=== PATIENT | male | born 1965 | race Caucasian/White ===

== ENCOUNTER 2017-08-09 17:10 | Emergency (ER) | payer SELFPAY ==
[2017-08-09 17:21] VITALS: BMI 24.1
[2017-08-09] MEDS ORDERED: ASPIRIN 81 MG CHEWABLE TABLETS PO ONE (17:51)
--- NOTE | 2017-08-09 17:56 | PDOC ---
Attending Attestation - Resident Resident Name: Celso Toussaint - HPI HPI: 08/09/17 20:11 Pt presents to the ED complaining of L sided arm tightness that then progressed to R sided arm numbness and now has resolved. Patient was recently discontinued on his antihypertensive meds. Denies chest pain or shortness of breath. Denies focal neurologic complaints. - Physicial Exam PE: 08/09/17 20:16 Agree with resident exam. Patient is in no acute distress. Lungs are clear. CV: regular rate and rhythm. Neurologically intact. - Medical Decision Making 08/09/17 20:18 Pt presents to the ED complaining of transient arm numbness that spontaneously resolved. Denies other complaints. Hypertensive on arrival to the ED. Will check labs and cardiac enzymes, treat with norvasc, likely discharge home if negative.
[2017-08-09] MEDS ORDERED: amLODIPine BESYLATE 10 MG TABLET (FP) PO ONE (18:01)
[2017-08-09] MEDS ORDERED: amLODIPine BESYLATE 5 MG TABLET (FP) ONE (18:05)
[2017-08-09] MEDS ORDERED: ASPIRIN 81 MG CHEWABLE TABLETS ONE (18:05)
[2017-08-09 18:18] LABS: BASO % 0.3 % (0-2.0); EOS % 0.8 % (0-4.5); HEMATOCRIT 47.1 % (35.4-49); HEMOGLOBIN 16.3 GM/dL (11.7-16.9); LYMPH % 12.9 % (8-40); MCH 29.2 pg (25.7-33.7); MCHC 34.5 g/dl (32.0-35.9); MEAN CELL VOLUME 84.7 fl (80-96); MEAN PLT VOLUME 8.8 fl (7.5-11.1); MONO % 5.9 % (3.8-10.2); NEUT % 80.1 % (42.8-82.8); PLATELET COUNT 174 K/MM3 (134-434); RBC 5.56 M/mm3 (4.00-5.60); RDW 13.3 % (11.9-15.9); WHITE BLOOD COUNT 8.2 K/mm3 (4.0-10.0)
--- NOTE | 2017-08-09 18:24 | PDOC ---
History of Present Illness - General Chief Complaint: CVA/TIA Stated Complaint: NUMBNESS TO RT FACE, TIGHTNESS ON ARMS Time Seen by Provider: 08/09/17 17:39 History Source: Patient Exam Limitations: No Limitations - History of Present Illness Initial Comments: 08/09/17 18:08 The patient is a 52M with a PMH of HTN and HLD who presents to the ER with L arm tightness. The patient states that he felt tightness in his L arm which has since resolved. He also states that he now has R arm tightness and a headache. He describes the headache as superior frontal, pressure, intermittent and does not radiate. He states he has never had a headache like this before but cannot differentiate how this is different. He denies any numbness, tingling, or weakness, CP, SOB, fever, chills, nausea, vomiting. Past History - Past Medical History Allergies/Adverse Reactions: Allergies Allergy/AdvReac Type Severity Reaction Status Date / Time No Known Allergies Allergy Verified 08/09/17 17:22 Home Medications: Ambulatory Orders Aspirin [Aspirin EC] 81 mg PO DAILY 08/09/17 Atorvastatin Ca [Lipitor] 20 mg PO HS 08/09/17 Lisinopril [Prinivil] 10 mg PO DAILY 08/09/17 COPD: No HTN: Yes Hypercholesterolemia: Yes - Suicide/Smoking/Psychosocial Hx Smoking History: Never smoked Information on smoking cessation initiated: No Hx Alcohol Use: No Drug/Substance Use Hx: No Substance Use Type: None Review of Systems - Review of Systems Able to Perform ROS?: Yes Comments:: 08/09/17 18:28 GENERAL/CONSTITUTIONAL: No fever or chills. No weakness. HEAD, EYES, EARS, NOSE AND THROAT: No change in vision. No ear pain or discharge. No sore throat. CARDIOVASCULAR: No chest pain, palpitations, or lightheadedness. RESPIRATORY: No cough, wheezing, shortness of breath, or hemoptysis. GASTROINTESTINAL: No nausea, vomiting, diarrhea, constipation, or abdominal pain. GENITOURINARY: No dysuria, frequency, hematuria, or change in urination. MUSCULOSKELETAL: Positive for L and R arm tightness. No joint or muscle swelling or pain. No neck or back pain. SKIN: No rash or lesions. NEUROLOGIC: No headache, numbness, tingling, weakness, loss of consciousness, or change in strength/sensation. ENDOCRINE: No increased thirst. No abnormal weight change. HEMATOLOGIC/LYMPHATIC: No anemia, easy bleeding, or history of blood clots. ALLERGIC/IMMUNOLOGIC: No hives or skin allergy. Is the patient limited Yi proficient: No *Physical Exam - Vital Signs Last Vital Signs Temp Pulse Resp BP Pulse Ox 98.4 F 81 18 165/111 100 08/09/17 17:17 08/09/17 17:17 08/09/17 17:17 08/09/17 17:17 08/09/17 17:17 - Physical Exam Comments: 08/09/17 18:29 GENERAL: Well developed, well nourished. Awake and alert. No acute distress. HEENT: Normocephalic, atraumatic. Hearing grossly normal. Moist mucous membranes. PERRLA, EOMI. No conjunctival pallor. Sclera are non-icteric. NECK: Supple. Full ROM. No JVD. CARDIOVASCULAR: Regular rate and rhythm. No murmurs, rubs, or gallops. PULMONARY: No evidence of respiratory distress. Lungs clear to auscultation bilaterally. No wheezing, rales or rhonchi. ABDOMINAL: Soft. Non-tender. Non-distended. No rebound or guarding. No organomegaly. Normoactive bowel sounds. GENITOURINARY: No CVA tenderness bilaterally. MUSCULOSKELETAL: Normal range of motion at all joints. No bony deformities or tenderness. EXTREMITIES: No cyanosis. No clubbing. No edema. No calf tenderness. SKIN: Warm and dry. Normal capillary refill. No rashes. No jaundice. NEUROLOGICAL: Alert, awake, appropriate. Cranial nerves 2-12 intact. No deficits to light touch and temperature in face, upper extremities and lower extremities. No motor deficits in the in face, upper extremities and lower extremities. Finger to nose normal bilaterally. Normal speech. Gait is normal without ataxia. PSYCHIATRIC: Cooperative. Good eye contact. Appropriate mood and affect. ED Treatment Course - LABORATORY CBC & Chemistry Diagram: 08/09/17 18:03 08/09/17 18:03 - RADIOLOGY Radiology Studies Ordered: Category Date Time Status CHEST PA & LAT [RAD] Stat Radiology 08/09/17 17:51 Ordered Medical Decision Making - Medical Decision Making 08/09/17 18:30 The patient is a 52M with a PMH of HTN and HLD who presents to the ER with resolved L arm tightness. Pending labs and imaging to r/o ACS. This is not a TIA /ACS as his neurologic exam is completely normal and he has no FND. 08/09/17 21:40 Initial trop negative. 3 hour trop negative. CXR negative on preliminary read. Pt's sx have resolved. Will recommend PCP f/u. *DC/Admit/Observation/Transfer Diagnosis at time of Disposition: Arm pain Qualifiers: Laterality: bilateral Qualified Code(s): M79.601 - Pain in right arm; M79.602 - Pain in left arm; M79.602 - Pain in left arm - Discharge Dispostion Disposition: HOME Condition at time of disposition: Stable Admit: No - Referrals Referrals: Suzette Patterson [Primary Care Provider] - - Patient Instructions Printed Discharge Instructions: DI for Anxiety -- Adult Additional Instructions: You came in with arm pain possibly concerning for a heart attack. Your tropinin (heart measurement) was negative when you came in and after 3 hours of your arrival. Your chest X-ray was negative as well. Please return to the ER if you have any signs or symptoms of chest pain, shortness of breath, uncontrollable fever, chills, nausea, vomiting, numbness, tingling, or weakness in any part of your body, changes in vision, or slurred speech. Please follow up with your primary care physician in 2-3 days. Please return to the ER if symptoms persist, worsen, or new symptoms arise. - Post Discharge Activity
[2017-08-09 18:32] LABS: INR 1.02 (0.82-1.09); PROTHROMBIN TIME (PATIENT) 11.5 SEC (9.98-11.88)
[2017-08-09 18:45] LABS: ALBUMIN 4.3 g/dl (3.4-5.0); ANION GAP 8 (8-16); BILIRUBIN,TOTAL 0.4 mg/dL (0.2-1.0); BLOOD UREA NITROGEN 12 mg/dL (7-18); CALCIUM 9.1 mg/dL (8.5-10.1); CHLORIDE 105 mmol/L (98-107); CO2 29 mmol/L (21-32); CREATININE 1.1 mg/dL (0.7-1.3); GLUCOSE,RANDOM 96 mg/dL (74-106); MAGNESIUM 2.2 mg/dL (1.8-2.4); POTASSIUM 3.7 mmol/L (3.5-5.1); SGOT/AST 16 U/L (15-37); SGPT/ALT 31 U/L (12-78); SODIUM 142 mmol/L (136-145); TOT PROT 7.8 g/dl (6.4-8.2)
[2017-08-09 18:48] LABS: ALK PHOS 103 U/L (45-117)
[2017-08-09 22:16] VITALS: BP 142/89; PULSE 63; TEMP 97.6
--- NOTE | 2017-08-10 23:54 | EKG ---
Test Reason : Blood Pressure : / mmHG Vent. Rate : 064 BPM Atrial Rate : 064 BPM P-R Int : 164 ms QRS Dur : 094 ms QT Int : 402 ms P-R-T Axes : 023 212 061 degrees QTc Int : 414 ms NORMAL SINUS RHYTHM RIGHT SUPERIOR AXIS DEVIATION ABNORMAL ECG NO PREVIOUS ECGS AVAILABLE Confirmed by ANGELA ALMANZAR MD ([id number]) on 08/10/2017 11:54:05 PM Referred By: Confirmed By:ANGELA ALMANZAR MD
== END 2017-08-09 22:32 | disposition home or self-care (01) ==
LOC: JER 17:10
DX: M79.601 Pain in right arm (principal); M79.602 Pain in left arm; I10 Essential (primary) hypertension; E78.00 Pure hypercholesterolemia, unspecified
CPT/HCPCS: 36415; 71046-TC-FY; 80053; 82550; 83735; 84484; 85025; 85610; 93005; 93010; 99282-25

== ENCOUNTER 2018-08-05 16:40 | Inpatient (IN) | payer OTHER ==
--- NOTE | 2018-08-05 17:53 | PDOC ---
History of Present Illness - General Chief Complaint: CVA/TIA Stated Complaint: NUMBNESS - History of Present Illness Initial Comments: The pt is a 53M w/ a history of HTN and HLD who presents for evaluation of 5 days of intermittent numbness/tingling. The pt states that his symptoms started on Thursday w/ RLE numbness over his calf that started while at rest and resolved after an hour. He reports taking ASA that evening. Since that time he has noted intermittent RLE, LUE, and RUE numbness that is independent, intermittent, and without identifiable trigger that resolves spontaneously usually after 10-20 minutes. He also reports 1 year of L sided, sharp, brief chest pain that is intermittent , spontaneous and most recently occurred last night when he laughed. Currently, the patient denies any symptoms. Denies fevers/chills, SOLIZ, vision changes, SOB, abdominal pain, N/V/C/D, dysuria , hematuria, diarrhea, or blood in his stool. Pt notes being evaluated on Thursday by his PMD who he reports told him that ' everything was fine.' 08/05/18 18:16 tPA Exclusion checklist 3-4.5h - Time Elapsed Date last known well: 08/05/18 Time last known well: 16:00 Elaspsed time: Day(s) and 4 Hour(s) and 4 Minutes - Thrombolytic Therapy Candidate Is patient eligible for thrombolytic therapy: No - Relative Exclusion Criteria 3-4.5 hr Rapid improvement: Yes NIH Stroke Scale - Last Known Well Date/Time & Onset Date Last Known Well: 08/05/18 Time Last Known Well: 16:00 - Initial Evaluation Level of consciousness: Alert Ask patient the month and their age: Answers both correctly Ask patient to open & close eyes; make fist and let go: Obeys both correctly Best gaze (horizontal eye movement): Normal Visual field testing: No visual field loss Facial paresis (Show teeth/raise eyebrows/close eyes tight): Normal symmetrical movement Motor Function: Left Arm: Normal Motor Function: Right Arm: Normal (extends arm 90 (or 45) degrees for 10 seconds without drift Motor Function: Left Leg: Normal (extends leg 30 degrees for 5 seconds without drift) Motor Function: Right Leg: Normal (extends leg 30 degrees for 5 seconds without drift) Limb Ataxia: No ataxia Sensory(Use pinprick test arms,legs,trunk,face/side to side): Normal Best language (Describe picture, name items, read sentences): No Aphasia Dysarthria (read several words): Normal articulation Extinction and Inattention: No abnormality - Total Score NIH Stroke Scale Score: 0 Past History - Past Medical History Allergies/Adverse Reactions: Allergies Allergy/AdvReac Type Severity Reaction Status Date / Time No Known Allergies Allergy Verified 08/09/17 17:22 Home Medications: Ambulatory Orders Aspirin [Aspirin EC] 81 mg PO DAILY 08/09/17 Atorvastatin Ca [Lipitor] 20 mg PO HS 08/09/17 Lisinopril [Prinivil] 10 mg PO DAILY 08/09/17 COPD: No HTN: Yes Hypercholesterolemia: Yes - Immunization History Immunization Up to Date: No - Suicide/Smoking/Psychosocial Hx Smoking History: Never smoked Have you smoked in the past 12 months: No Information on smoking cessation initiated: No Hx Alcohol Use: No Drug/Substance Use Hx: No Substance Use Type: None Review of Systems - Review of Systems Able to Perform ROS?: Yes Comments:: GENERAL/CONSTITUTIONAL: No fever or chills. No weakness HEAD, EYES, EARS, NOSE AND THROAT: No change in vision or hearing. No sore throat CARDIOVASCULAR: No shortness of breath RESPIRATORY: Denies cough, hemoptysis GASTROINTESTINAL: No nausea, vomiting, diarrhea or constipation GENITOURINARY: No dysuria, frequency, or change in urination MUSCULOSKELETAL: No joint or muscle swelling or pain. No neck or back pain SKIN: No rash NEUROLOGIC: No headache, vertigo, loss of consciousness ENDOCRINE: No increased thirst. No abnormal weight change HEMATOLOGIC/LYMPHATIC: No anemia, easy bleeding, or history of blood clots ALLERGIC/IMMUNOLOGIC: No hives or skin allergy 08/05/18 18:26 Is the patient limited Nepali proficient: No *Physical Exam - Vital Signs Last Vital Signs Temp Pulse Resp BP Pulse Ox 98.2 F 86 16 136/70 98 08/05/18 16:52 08/05/18 16:52 08/05/18 16:52 08/05/18 16:52 08/05/18 16:52 - Physical Exam Comments: GENERAL: Awake, alert, and oriented to person/place/time, in no acute distress HEAD: No signs of trauma, normocephalic, atraumatic EYES: PERRLA, EOMI, sclera anicteric, conjunctiva clear ENT: Hearing grossly normal, nares patent, oropharynx clear without exudates. Moist mucosa LUNGS: No distress, speaks full sentences, clear to auscultation bilaterally HEART: Regular rate and rhythm, normal S1 and S2, no murmurs appreciated, peripheral pulses normal and equal bilaterally ABDOMEN: Soft, nontender, normoactive bowel sounds. No guarding, no rebound. No masses EXTREMITIES: Normal inspection, Normal range of motion, no edema. No clubbing or cyanosis NEUROLOGICAL: Cranial nerves II through XII grossly intact. Normal speech, no focal sensorimotor deficits SKIN: Warm, Dry 08/05/18 18:29 ED Treatment Course - LABORATORY CBC & Chemistry Diagram: 08/05/18 18:00 08/05/18 18:00 - RADIOLOGY Radiology Studies Ordered: Category Date Time Status HEAD CT WITHOUT CONTRAST [CT] Stat CT Scan 08/05/18 17:50 Ordered CHEST X-RAY PORTABLE* [RAD] Stat Radiology 08/05/18 17:26 Ordered Medical Decision Making - Medical Decision Making The pt is a 53M w/ a history of HTN and HLD who presents for evaluation of intermittent, migrating numbness/tingling and a also notes a year of sharp intermittent L chest pain that he is concerned about. ED Course Labs sent ECG CXR CT head 08/05/18 18:32 No anemia No leukocytosis ECG w/ NSR; HR 76; QTc 438; RAD; 08/05/18 18:37 CT head w/o acute pathology 08/05/18 19:36 *DC/Admit/Observation/Transfer Diagnosis at time of Disposition: Numbness and tingling, ACS (acute coronary syndrome) Chest pain Qualifiers: Chest pain type: unspecified Qualified Code(s): R07.9 - Chest pain, unspecified Hypertension Qualifiers: Hypertension type: unspecified Qualified Code(s): I10 - Essential (primary) hypertension - Discharge Dispostion Condition at time of disposition: Good Decision to Admit order: Yes - Referrals Referrals: Lucie Cobos MD [Primary Care Provider] - - Patient Instructions - Post Discharge Activity
--- NOTE | 2018-08-05 18:06 | PDOC ---
Attending Attestation - Resident Resident Name: Ken Garcia - ED Attending Attestation I have performed the following: I have examined & evaluated the patient, The case was reviewed & discussed with the resident, I agree w/resident's findings & plan, Exceptions are as noted - Medical Decision Making 08/05/18 18:06 I, Dr. Alyssa Jackson, DO, attest that this document has been prepared under my direction and personally reviewed by me in its entirety. I further attest, that it accurately reflects all work, treatment, procedures and medical decision -making performed by me. 08/05/18 20:00 a/p: 53yo male with intermittent episodes of numbness since thursday -pt with a sister dx with a CVA on thursday -pt had a 10min episode of of R arm and leg numbness earlier today -states also having intermittent episodes of cp over the last week -saw his PMD on thursday, but still having episodes of numbness and cp -will obtain head ct, labs, ekg, trop, cxr -pt neuro intact -no deficits at this time -pt is nontoxic in appearance NIHSS-0, all symptoms resolved prior to arrival in the ED -no TPA given negative NIHSS 08/05/18 20:03 resident discussed the case with Dr. Perez from [facility] who accepts pt to obs <Alyssa Jackson - Last Filed: 08/05/18 20:00> - HPI HPI: The patient is a 53 year old male, with a significant PMH of hypertension and hyperlipidemia, who presents to the emergency department today complaining of paresthesia in the upper and lower extremities for 5 days, and neck pain for 4 days. Patient notes that the numbness and tingling suddenly began in his right calf, which self-resolved after an hour. He states that his symptoms progressively traveled to his left and right upper extremities, intermittent in nature and self-resolve in 10-20 minutes. Patient also notes intermittent numbness in the tongue, which he notes feels heavy and causes him to have a hard time speaking. Patient denies any aggravating or alleviating factors, but does note his sister has a stroke 6 days ago. He also notes experiencing neck pain, with associated feeling of sleepiness followed by sudden onset of feeling awake. Patient states these episodes are intermittent, and self-resolve after 10 minutes. He denies any facial contusion or falls. He also reports chronic chest pain at baseline, which has been present for one year. He describes his chest pain as sharp, left sided, intermittent, and spontaneous. Patient reports being asymptomatic at this time. The patient denies shortness of breath, headache and dizziness. Denies fever, chills, nausea, vomit, diarrhea and constipation. Denies dysuria, frequency, urgency and hematuria. Allergies: NKA Past surgical history: None reported Social history: No reported PCP: Dr. Lucie Cobos 08/05/18 20:22 - Physicial Exam PE: GENERAL: Awake, alert, and fully oriented, in no acute distress HEAD: No signs of trauma EYES: PERRLA, EOMI, sclera anicteric, conjunctiva clear ENT: Auricles normal inspection, hearing grossly normal, nares patent, oropharynx clear without exudates. Moist mucosa NECK: Normal ROM, supple, no lymphadenopathy, JVD, or masses LUNGS: Breath sounds equal, clear to auscultation bilaterally. No wheezes, and no crackles HEART: Regular rate and rhythm, normal S1 and S2, no murmurs, rubs or gallops ABDOMEN: Soft, nontender, normoactive bowel sounds. No guarding, no rebound. No masses EXTREMITIES: Normal range of motion, no edema. No clubbing or cyanosis. No cords, erythema, or tenderness. No pronator drift. NEUROLOGICAL: Cranial nerves II through XII grossly intact. Normal speech, normal gait SKIN: Warm, Dry, normal turgor, no rashes or lesions noted. 08/05/18 20:22 - Medical Decision Making EXAM#: TYPE/EXAM: RESULT: [id number] CT/HEAD CT WITHOUT CONTRAST Cranial CT without contrast Impression: No CT evidence of acute intracranial pathology. Reported By: Stuart Dickerson MD 08/05/18 19:02 EXAM#: TYPE/EXAM: RESULT: [id number] RAD/CHEST X-RAY PORTABLE* Chest: Chest pain Impression: No acute chest pathology. Reported By: Quincy Gilbert MD 08/05/18 19:49 Documentation prepared by JADEN Min, acting as medical staff manager for Alyssa Jackson DO. 08/05/18 22:27 <Eloisa Gutierrez - Last Filed: 08/05/18 22:28> Heart Score/ECG Review - ECG Intrepretation Comment:: 08/05/18 18:30 sinus at 76, R axis, nl interval, no acute st/t wave findings <Alyssa Jackson - Last Filed: 08/05/18 20:00>
[2018-08-05 18:27] LABS: BASO % 0.2 % (0-2.0); EOS % 1.3 % (0-4.5); HEMATOCRIT 46.7 % (35.4-49); HEMOGLOBIN 15.9 GM/dL (11.7-16.9); LYMPH % 18.3 % (8-40); MCH 28.8 pg (25.7-33.7); MEAN CELL VOLUME 84.6 fl (80-96); MEAN PLT VOLUME 8.5 fl (7.5-11.1); MONO % 5.3 % (3.8-10.2); NEUT % 74.9 % (42.8-82.8); PLATELET COUNT 189 K/MM3 (134-434); RBC 5.52 M/mm3 (4.00-5.60); RDW 13.2 % (11.9-15.9); WHITE BLOOD COUNT 7.2 K/mm3 (4.0-10.0)
[2018-08-05 18:48] LABS: ALBUMIN 4.1 g/dl (3.4-5.0); ALK PHOS 71 U/L (45-117); BILIRUBIN,TOTAL 0.5 mg/dL (0.2-1); BLOOD UREA NITROGEN 16 mg/dL (7-18); CALCIUM 9.2 mg/dL (8.5-10.1); CHLORIDE 106 mmol/L (98-107); CO2 25 mmol/L (21-32); CREATININE 0.8 mg/dL (0.55-1.3); GLUCOSE,RANDOM 101 mg/dL (74-106); POTASSIUM 3.9 mmol/L (3.5-5.1); SGOT/AST 20 U/L (15-37); SGPT/ALT 38 U/L (13-61); SODIUM 140 mmol/L (136-145); TOT PROT 7.4 g/dl (6.4-8.2)
[2018-08-05 19:01] LABS: ANION GAP 10 MMOL/L (8-16)
--- NOTE | 2018-08-05 19:56 | PN ---
Teaching Attending Note Name of Resident: Avel Oates ATTENDING PHYSICIAN STATEMENT I saw and evaluated the patient. I reviewed the resident's note and discussed the case with the resident. I agree with the resident's findings and plan as documented. SUBJECTIVE: Patient is a 53 year old man with PMH of HTN and HLD who presents for evaluation of 5 days of intermittent numbness/tingling. Patient states that his symptoms started on Thursday with RLE numbness over his calf that started while at rest and resolved after an hour. He reports taking ASA that evening. Since that time he has noted intermittent RLE, LUE, and RUE numbness that is independent, intermittent, and without identifiable trigger that resolves spontaneously usually after 10-20 minutes. He also reports 1 year of L sided, sharp, brief chest pain that is intermittent, spontaneous and most recently occurred last night when he laughed. Had some tongue numbness, brief bout of dizziness and "weirdness in his vision". Currently, the patient denies any symptoms. Denies fevers, chills, headache, vision changes, SOB, abdominal pain, nausea, vomiting, diarrhea, constipation, dysuria, hematuria, or blood in his stool. Patient notes being evaluated on Thursday by his PMD who he reports told him that 'everything was fine.' Also about 1 year ago (08/09/17), he was evaluated in [facility] ER for transient left arm tightness and right arm numbness. OBJECTIVE: Alert Vital Signs Period Temp Pulse Resp BP Sys/Alejandra Pulse Ox Last 24 Hr 98.2 F 86 16 136/70 98 HEENT: No Jaundice, eye redness or discharge, PERRLA, EOMI. Normocephalic, atraumatic. External ears are normal and hearing is grossly intact. No nasal discharge. Neck: Supple, nontender. No palpable adenopathy or thyromegaly. No JVD Chest: Good effort. Clear to auscultation and percussion. Heart: Regular. No S3, rub or murmur Abdomen: Not distended, soft, nontender and no HSM. No rebound or guarding. Normal bowel sounds. Ext: Peripheral pulses intact. No leg edema. Skin: Warm and dry. No petechiae, rash or ecchymosis. Neuro: Alert. Oriented x3. CN 2-12 grossly intact. Sensation grossly intact in all four extremities and DTR are symmetric. Psych: Appropriate mood and affect. Good insight. Home Medications Medication Instructions Recorded Aspirin [Aspirin EC] 81 mg PO DAILY 08/09/17 Atorvastatin Ca [Lipitor] 20 mg PO HS 08/09/17 Lisinopril [Prinivil] 10 mg PO DAILY 08/09/17 ASSESSMENT AND PLAN: 1. Numbness and Tingling in extremities - CT brain didnot show any acute abnormality. EKG shows NSR and no acute ST-T wave changes and initial troponin is negative. Symptoms are chronic and is unlikely to be TIA. Will get brain/c- spine MRI as well as lumbar puncture to rule out multiple sclerosis. Get RPR and TSH. 2. Hypertension - Restart outpatient antihypertensive drugs and revise regimen to ensure smooth [id number] good BP control. Nonpharmacologic measures to control hypertension like weight loss, salt restriction and exercise discussed. 3. DVT prophylaxis - Lovenox 40 mg SQ q 24 hours. 4. Advance directives - Full code
--- NOTE | 2018-08-05 20:58 | HP ---
CHIEF COMPLAINT: Numbness in extremities PCP: Dr. Cobos HISTORY OF PRESENT ILLNESS: Pt. is a 53 y.o. M presenting with 4 day history of intermittent numbness that started on Thursday. States it started as a "light numbness in the left leg," then went to a "light numbness in right leg" and then "heavy numbness in right arm" back to light numbness in left arm. Pt. states that the periods of numbness last about 20 minutes and move spontaneously from limb to limb. Pt. denies any association with time of day, position, activity, or location. Pt. endorses "an unexplainable weirdness" that happens to his eyes that altered his vision intermittently but denies overt blurriness, loss of vision, or it happening currently. Pt. endorses dizziness and intermittent chest discomfort that resolved before ED arrival. Chest discomfort lasted a few seconds and switched from the left to the right side. Of note Pt. had a similar presentation of numbness and chest discomfort last year August, was seen in the ED referred to PCP, fully worked up with CTA, and worked up by trip rider and was negative for any acute pathology at that time. Pt. endorses right calf "cramps/muscle aches", states that the cramps started on Thursday and preceded the start of the symptoms of numbness and which the Pt. attributes to a particularly hard day of work . Pt. denies any weakness in the extremities during the period of numbness, before or after. Pt. denies changes in bowel or urinary habits, including increased difficulty passing urine , blood in the urine or stool. Pt. denies weight loss or ever having a colonoscopy. Pt's sister recently had a stroke which prompted Pt. to come in and check up on the numbness. ER course was notable for: (1)CT Head, EKG, Trop (2)labs (3) Recent Travel: No PAST MEDICAL HISTORY: HTN, HLD(resolved) PAST SURGICAL HISTORY: Denies Social History: Smoking: Denies, never Alcohol: Occasionally 2 beers Drugs: Denies, never Work: bench worker Family History: Father-DM, Sister- "throat cancer(57)", stroke on Thursday () Allergies No Known Allergies Allergy (Verified 08/09/17 17:22) HOME MEDICATIONS: Home Medications Medication Instructions Recorded Aspirin [Aspirin EC] 81 mg PO DAILY 08/09/17 Atorvastatin Ca [Lipitor] 20 mg PO HS 08/09/17 Lisinopril [Prinivil] 10 mg PO DAILY 08/09/17 REVIEW OF SYSTEMS As per [facility] PHYSICAL EXAMINATION Vital Signs - 24 hr 08/05/18 16:52 Temperature 98.2 F Pulse Rate 86 Respiratory 16 Rate Blood Pressure 136/70 O2 Sat by Pulse 98 Oximetry (%) GENERAL: Awake, alert, and fully oriented, in no acute distress. HEAD: Normal with no signs of trauma. EYES: Pupils equal, round and reactive to light, extraocular movements intact, sclera anicteric, conjunctiva clear. EARS, NOSE, THROAT: Ears normal, nares patent, oropharynx clear without exudates. Moist mucous membranes. NECK: Normal range of motion, supple without lymphadenopathy, JVD, or masses. LUNGS: Breath sounds equal, clear to auscultation bilaterally. No wheezes, and no crackles. No accessory muscle use. HEART: Regular rate and rhythm, normal S1 and S2 without murmur, rub or gallop. ABDOMEN: Soft, nontender, not distended, normoactive bowel sounds, no guarding, no rebound, no masses. MUSCULOSKELETAL: Normal range of motion at all joints. No bony deformities or tenderness. No CVA tenderness. UPPER EXTREMITIES: 2+ radial pulses, warm, well-perfused. No cyanosis. No clubbing. No peripheral edema. LOWER EXTREMITIES: 2+ dorsal pedal pulses, warm, well-perfused. No calf tenderness. No peripheral edema. NEUROLOGICAL: Cranial nerves II-XII intact. Normal speech. Normal gait. 3+ DTRs in lower extremity and 2+ in upper extremities(Pt. did not relax upper extremities) PSYCHIATRIC: Cooperative. Good eye contact. Appropriate mood and affect. SKIN: Warm, dry, normal turgor, no rashes or lesions noted, normal capillary refill. Laboratory Results - last 24 hr 08/05/18 08/05/18 08/05/18 18:00 18:00 18:00 WBC 7.2 RBC 5.52 Hgb 15.9 Hct 46.7 MCV 84.6 MCH 28.8 MCHC 34.0 RDW 13.2 Plt Count 189 MPV 8.5 Absolute Neuts (auto) 5.4 Neutrophils % 74.9 Lymphocytes % 18.3 D Monocytes % 5.3 Eosinophils % 1.3 Basophils % 0.2 Nucleated RBC % 0 Sodium 140 Potassium 3.9 Chloride 106 Carbon Dioxide 25 Anion Gap 10 BUN 16 Creatinine 0.8 Creat Clearance w eGFR 100.74 Random Glucose 101 Calcium 9.2 Total Bilirubin 0.5 AST 20 ALT 38 Alkaline Phosphatase 71 Troponin I < 0.02 Total Protein 7.4 Albumin 4.1 ASSESSMENT/PLAN: Pt. is a 53 y.o. M presenting with 4 day history of intermittent numbness that started on Thursday. Physical exam positive for brisk reflexes in lower extremities w/o focal neurological deficits, Labs and CT Head negative for acute pathology. #Suspected Multiple Sclerosis Intermittent Paresthesias disseminated in time and space. Hyperreflexia f/u Brain/C-Spine/Thoracic and Lumbar MRI w/wo contrast (if Neg. would consider outpatient EMG) Neurology Consult (Dr. Ponce) appreciated Would do Lumbar Puncture and test CSF for oligoclonal bands, IGG Index and Myelin Basic Protein Would test serum for same markers- PLEASE draw at the same time as CSF F/u PCP records from office of Dr. Cobos (Pt. not in [facility]) Head CT negative f/u TSH Low suspicion for TIA as Pt. has been having symptoms for greater than 24 hours and the waxing-waning nature is not consistent with overt stroke. Head CT Neg. will Differential Ddx. include: -Transverse Myelitis (does not have any sympathetic or parasympathetic involvement, concurrent bilateral symptoms or clearly defined sensory level, however will f/u MRI) -Syphillis (f/u RPR) -Neoplasm (denies weight loss, hematochezia, constipation or family history) #HTN continue Lisinopril 10mg Trop Neg x 2 EKG: NSR, QTc: 438, no ST segment elevations or depressions, to TWI or Q waves #FEN no IVF, encourage PO intake monitor electrolytes replete as needed Na Restricted Diet #DVT Ppx. Early Ambulation Visit type - Emergency Visit Emergency Visit: Yes ED Registration Date: 08/07/18 Care time: The patient presented to the Emergency Department on the above date and was hospitalized for further evaluation of their emergent condition. - New Patient This patient is new to me today: Yes Date on this admission: 08/07/18 - Critical Care Critical Care patient: No
[2018-08-06 03:08] VITALS: BMI 24.6
[2018-08-06 07:58] LABS: HEMATOCRIT 45.8 % (35.4-49); HEMOGLOBIN 15.8 GM/dL (11.7-16.9); MCHC 34.5 g/dl (32.0-35.9); MEAN PLT VOLUME 8.8 fl (7.5-11.1); PLATELET COUNT 188 K/MM3 (134-434); RBC 5.45 M/mm3 (4.00-5.60); RDW 13.1 % (11.9-15.9); WHITE BLOOD COUNT 6.2 K/mm3 (4.0-10.0)
[2018-08-06 08:22] LABS: ANION GAP 8 MMOL/L (8-16); BLOOD UREA NITROGEN 17 mg/dL (7-18); CALCIUM 8.5 mg/dL (8.5-10.1); CHLORIDE 108 mmol/L (98-107); CO2 27 mmol/L (21-32); GLUCOSE,RANDOM 89 mg/dL (74-106); MAGNESIUM 2.3 mg/dL (1.8-2.4); PHOSPHOROUS 4.6 mg/dL (2.5-4.9); POTASSIUM 3.7 mmol/L (3.5-5.1); SODIUM 143 mmol/L (136-145)
[2018-08-06 08:54] LABS: INR 1.06 (0.83-1.09); PROTHROMBIN TIME (PATIENT) 12.5 SEC (9.7-13.0)
[2018-08-06] MEDS: ASPIRIN COATED 81 MG TABLET.EC PO SCH (09:30)
[2018-08-06] MEDS: LISINOPRIL 10 MG TABLET (FP) PO SCH (09:30)
--- NOTE | 2018-08-06 12:17 | CONSULT ---
Consult - text type - Consultation Consultation Note: NEUROLOGY CONSULT APPRECIATED: Events reviewed and discussed with hospitalist team and IRMA Alcantara. 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 PMHX includes HTN, HLD on lisinopril, atorvastatin and ASA. History of remote, "rare," "mild" headaches over the years. Now reporting 3 days of B/L occipital "aching pains" constant in nature with associated dizziness. Also approximately 5 years of "aching pains" in low back, worse with prolonged sitting or in evening hours with prior episodic "flanagan splints/annie horse." Also worked up for intermittent L sided chest pains 1 year ago without significant findings and now experiencing periodic R sided chest pains. Now 3 days of intermittent "numbness" first involving right leg, then left arm and hand, and more recently the right leg for "a few seconds" during daytime and evening hours. Review of systems significant for bruxism diagnosed by dentist with recommendation to wear a bite guard. Head CT (reviewed): essentially normal study MCV 84 TSH 3.69 RPR non-reactive MAYANK: Cor reg. No bruit. Normal Neck ROM. NEURO: Mentation/Speech: Awake, alert oriented x 3. Cooperative with exam. CNII-CNXII: EOM intact with full lugo appreciated. No facial. Motor: No drift. Strength normal. Reflexes normal and symmetric. Plantars silent. Coordination: No FTN dystaxia. Sensation: Normal to vibration. Romberg - Gait: Normal stride. Pt can walk heels, toes, tandem without difficulty. Impression: 1. Essentially normal neurological exam 2. Exacerbation of Migraine Headaches 3. Predominately nocturnal paresthesiae suggestive of Restless Limb Syndrome (RLS). Suggest: Agree with MRI of brain (C-), MRI of C spine (C-) Order ESR, CRP, Iron studies Try pramipexole 0.25 mg BID Neuro f/u as outpatient for rx migraine headaches and RLS If headaches persist, add Propranolol ER 60 mg for migraine prophylaxis. Thank you very much, Vitor Cavazos MD
--- NOTE | 2018-08-06 12:22 | EKG ---
Test Reason : Blood Pressure : / mmHG Vent. Rate : 076 BPM Atrial Rate : 076 BPM P-R Int : 160 ms QRS Dur : 104 ms QT Int : 390 ms P-R-T Axes : 040 233 050 degrees QTc Int : 438 ms NORMAL SINUS RHYTHM RIGHT SUPERIOR AXIS DEVIATION ABNORMAL ECG WHEN COMPARED WITH ECG OF 09-AUG-2017 18:00, NO SIGNIFICANT CHANGE WAS FOUND Confirmed by SUSANA PEREZ MD ([id number]) on 08/06/2018 12:22:40 PM Referred By: Confirmed By:SUSANA PEREZ MD
--- NOTE | 2018-08-06 15:34 | PN ---
Physical Exam: SUBJECTIVE: Patient seen and examined at bedside. Denies chest pain or shortness of breath. OBJECTIVE: Vital Signs Period Temp Pulse Resp BP Sys/Alejandra Pulse Ox Last 24 Hr 97.7 F-98.6 F 52-86 16-18 99-137/60-84 98-98 GENERAL: No acute distress. Pleasant HEAD: Atraumatic/Normocephalic EYES: Pupils equal round and reacted to light and accomodation. EOMI ENT: Ears normal, nares patent, oropharynx clear without exudates, moist mucous membranes. NECK: Trachea midline, full range of motion, supple. LUNGS: Clear to auscultation b/l HEART: RRR nl S1S2 ABDOMEN: RRR nl S1S2 EXTREMITIES: 2+ pulses, warm, well-perfused, no edema. NEUROLOGICAL: Cranial nerves II through XII grossly intact. Reflexes 2+ Upper and lower extremities. PSYCH: Normal mood, normal affect. SKIN: Warm, dry, normal turgor, no rashes or lesions noted Laboratory Results - last 24 hr 08/05/18 08/05/18 08/05/18 18:00 18:00 18:00 WBC 7.2 RBC 5.52 Hgb 15.9 Hct 46.7 MCV 84.6 MCH 28.8 MCHC 34.0 RDW 13.2 Plt Count 189 MPV 8.5 Absolute Neuts (auto) 5.4 Neutrophils % 74.9 Lymphocytes % 18.3 D Monocytes % 5.3 Eosinophils % 1.3 Basophils % 0.2 Nucleated RBC % 0 PT with INR INR Sodium 140 Potassium 3.9 Chloride 106 Carbon Dioxide 25 Anion Gap 10 BUN 16 Creatinine 0.8 Creat Clearance w eGFR 100.74 Random Glucose 101 Calcium 9.2 Phosphorus Magnesium Total Bilirubin 0.5 AST 20 ALT 38 Alkaline Phosphatase 71 Troponin I < 0.02 C-Reactive Protein Total Protein 7.4 Albumin 4.1 TSH RPR Titer 08/05/18 08/06/18 08/06/18 20:47 06:00 07:00 WBC 6.2 RBC 5.45 Hgb 15.8 Hct 45.8 MCV 84.0 MCH 29.0 MCHC 34.5 RDW 13.1 Plt Count 188 MPV 8.8 Absolute Neuts (auto) Neutrophils % Lymphocytes % Monocytes % Eosinophils % Basophils % Nucleated RBC % PT with INR INR Sodium Potassium Chloride Carbon Dioxide Anion Gap BUN Creatinine Creat Clearance w eGFR Random Glucose Calcium Phosphorus Magnesium Total Bilirubin AST ALT Alkaline Phosphatase Troponin I < 0.02 C-Reactive Protein Total Protein Albumin TSH RPR Titer Nonreactive 08/06/18 08/06/18 08/06/18 07:00 07:00 13:30 WBC RBC Hgb Hct MCV MCH MCHC RDW Plt Count MPV Absolute Neuts (auto) Neutrophils % Lymphocytes % Monocytes % Eosinophils % Basophils % Nucleated RBC % PT with INR 12.50 INR 1.06 Sodium 143 Potassium 3.7 Chloride 108 H Carbon Dioxide 27 Anion Gap 8 BUN 17 Creatinine 1.0 Creat Clearance w eGFR 77.87 Random Glucose 89 Calcium 8.5 Phosphorus 4.6 Magnesium 2.3 Total Bilirubin AST ALT Alkaline Phosphatase Troponin I C-Reactive Protein < 0.3 Total Protein Albumin TSH 3.69 RPR Titer Active Medications Generic Name Dose Route Start Last Admin Trade Name Freq PRN Reason Stop Dose Admin Aspirin 81 mg 08/06/18 10:00 08/06/18 09:30 Ecotrin - PO 81 mg DAILY BEREKET Administration Lisinopril 10 mg 08/06/18 10:00 08/06/18 09:30 Prinivil PO 10 mg DAILY BEREKET Administration Pramipexole Dihydrochloride 0.25 mg 08/06/18 22:00 Mirapex - PO BID BEREKET ASSESSMENT/PLAN: Pt. is a 53 y/o gentleman presenting with 4 day history of intermittent numbness that started on Thursday. #Complicated Migraine Vs MS VS Lyme Disease -Brain/C-Spine/Thoracic and Lumbar MRI w/wo contrast -Neurology Dr Cavazos on board----> Try pramipexole 0.25 mg BID -Head CT negative -Lyme serology pending #HTN continue Lisinopril 10mg Trop Neg x 2 EKG: NSR, QTc: 438, no ST segment elevations or depressions, to TWI or Q waves # Atypical Chest pain Reportedly underwent CT Heart with a negative CT Calcium score Troponins negative X2 #FEN -No Standing Fluids -Monitor Electrolytes -Sodum Controlled Diet #DVT ppx -EAM Visit type - Emergency Visit Emergency Visit: Yes ED Registration Date: 08/05/18 Care time: The patient presented to the Emergency Department on the above date and was hospitalized for further evaluation of their emergent condition. - New Patient This patient is new to me today: Yes Date on this admission: 08/06/18 - Critical Care Critical Care patient: No - Discharge Referral Referred to [facility] Med P.C.: No
--- NOTE | 2018-08-06 18:41 | PN ---
Teaching Attending Note Name of Resident: Quincy Albright ATTENDING PHYSICIAN STATEMENT I saw and evaluated the patient. I reviewed the resident's note and discussed the case with the resident. I agree with the resident's findings and plan as documented. SUBJECTIVE:seen at 11 am no fever or chills. No SOLIZ at this point . no numbness tingling ot weakness r cp at time of eval. HPI was confirmed with patient OBJECTIVE: NAD, awake, alert and oriented. MMM CV: RRR, no MRG Lungs: CTAB Ext : no edema or erythema Neuro: EOMI, no facial droop. tongue and uvula at bedside. round equal pupils, reactive to light . strength 5/5 in upper and lower extremities proximally and distally. sensation to light touch is NL . reflexes 2+ knee jerk and biceps b/l . ASSESSMENT AND PLAN: 53 y/o man with h/o HTN who presented with numbness on multiple sites and CP. 1- Numbness: ? complicated Migraine VS. Lyme Vs. cervical myelopathy Vs. TEXTILE TECHNOLOGIST pathology. unlikely stroke or TIA given distribution - MRI of brain and C spine pending - order lyme serology - neuro input noted. started on Pramipixole 2- CP: atypical. EKG reviewed. had w/u as out pt with CT calcium score , and it was reportedly neg f/u as out pt 3-H/o HTN: cont lisinopril. dispo : dc pending MRI
--- NOTE | 2018-08-06 23:18 | PN ---
Progress Note (short form) - Note Progress Note: Called by radiology restoration ecologist to discuss result of brain MRI and c-spine: WNL, (-) . no acute abnormality. D/w radio, Dr. Henrry Harry. Thank you Karen Self, PGY-2 Night team
[2018-08-07] MEDS: PRAMIPEXOLE DIHYDROCHLORIDE 0.25 MG TABLET PO SCH ×3 (00:16→21:10)
[2018-08-07 04:13] LABS: SERUM IRON SATURATION 23 % (15-55); TOTAL IRON BINDING CAPACITY 311 ug/dL (250-450); UIBC 238 ug/dL (111-343)
[2018-08-07 07:19] LABS: HEMATOCRIT 44.4 % (35.4-49); HEMOGLOBIN 15.1 GM/dL (11.7-16.9); MCHC 34.1 g/dl (32.0-35.9); MEAN CELL VOLUME 84.9 fl (80-96); MEAN PLT VOLUME 8.7 fl (7.5-11.1); PLATELET COUNT 174 K/MM3 (134-434); RBC 5.23 M/mm3 (4.00-5.60); RDW 13.1 % (11.9-15.9); WHITE BLOOD COUNT 7.9 K/mm3 (4.0-10.0)
[2018-08-07 07:38] LABS: ANION GAP 6 MMOL/L (8-16); BLOOD UREA NITROGEN 15 mg/dL (7-18); CALCIUM 8.6 mg/dL (8.5-10.1); CHLORIDE 104 mmol/L (98-107); CO2 28 mmol/L (21-32); GLUCOSE,RANDOM 96 mg/dL (74-106); MAGNESIUM 2.4 mg/dL (1.8-2.4); PHOSPHOROUS 3.4 mg/dL (2.5-4.9); SODIUM 139 mmol/L (136-145)
[2018-08-07] MEDS ORDERED: PT OWN MED DRAWER 7, Y5N ONE ×2 (10:05→21:00)
[2018-08-07] MEDS: LISINOPRIL 10 MG TABLET (FP) PO SCH (10:32)
[2018-08-07] MEDS: ASPIRIN COATED 81 MG TABLET.EC PO SCH (10:32)
--- NOTE | 2018-08-07 11:46 | PN ---
Teaching Attending Note Name of Resident: Quincy Albright ATTENDING PHYSICIAN STATEMENT I saw and evaluated the patient. I reviewed the resident's note and discussed the case with the resident. I agree with the resident's findings and plan as documented. SUBJECTIVE: denies any SOB ,or CP at time or evaluation around 8:30 am OBJECTIVE: NAD, awake, alert and oriented. MMM CV: RRR, no MRG Lungs: CTAB Ext : no edema or erythema Neuro: EOMI, no facial droop. tongue and uvula at bedside. round equal pupils, reactive to light . strength 5/5 in upper and lower extremities proximally and distally. sensation to light touch is NL. reflexes 2+ knee jerk and biceps b/l. ASSESSMENT AND PLAN: 53 y/o man with h/o HTN who presented with numbness on multiple sites and CP. 1- Numbness: ? complicated Migraine VS. Lyme Vs. cervical myelopathy . - Final report of brain MRI and c spine MRI. reviewed. ventral herniation of C6- 7 with mild indentation of the right sided cord. - will consult and call neuro sx. - lyme serology pending. RPR non reactive. - cont Pramipixole 2- CP: atypical. tele reviewed. possible artifact vs SVT. will run strips by card and if not artifact, will start Bb and officially consult card if suspicion for arrhythmias, then will get echo 3-H/o HTN: cont lisinopril. dispo : pending neuro sx eval
--- NOTE | 2018-08-07 12:39 | PN ---
Physical Exam: SUBJECTIVE: Pt started on pramipexole last night. Pt has no complaints today. Pt on telemetry has artifact VTach episode and with possible SVT during the morning while going to the bathroom today. Pt denies any palpitations or shortness of breath during episode. OBJECTIVE: Vital Signs Period Temp Pulse Resp BP Sys/Alejandra Pulse Ox Last 24 Hr 97.7 F-98.6 F 58-73 16-20 104-137/64-85 98-100 GENERAL: The patient is awake, alert, and fully oriented, in no acute distress. HEENT: NC/AT, MALCOLM, EOMI, MMM NECK: No JVD LUNGS: CTA bilaterally, no wheezes, no crackles, no accessory muscle use. HEART: RRR, S1, S2 without murmur ABDOMEN: Soft, NT/ND, normoactive bowel sounds, no guarding, no rebound, no hepatomegaly EXTREMITIES: 2+ DP pulses, warm, well-perfused, no edema. BACK: No TTP with C-spine palpation, no overlying skin changes NEUROLOGICAL: health technician II through XII grossly intact. Normal speech, normal gait. Strength 5/5 in upper and lower extremity lugo, sensation intact throughout, DTR 2/4 in patellar PSYCH: Normal mood, normal affect. SKIN: Warm, dry, no rashes or lesions noted Laboratory Results - last 24 hr 08/06/18 08/06/18 08/07/18 07:00 13:30 06:00 WBC RBC Hgb Hct MCV MCH MCHC RDW Plt Count MPV ESR 3 Sodium Potassium Chloride Carbon Dioxide Anion Gap BUN Creatinine Creat Clearance w eGFR Random Glucose Calcium Phosphorus Magnesium Iron 73 TIBC 311 Iron Saturation 23 C-Reactive Protein < 0.3 08/07/18 08/07/18 06:00 06:00 WBC 7.9 RBC 5.23 Hgb 15.1 Hct 44.4 MCV 84.9 MCH 29.0 MCHC 34.1 RDW 13.1 Plt Count 174 MPV 8.7 ESR Sodium 139 Potassium 4.0 Chloride 104 Carbon Dioxide 28 Anion Gap 6 L BUN 15 Creatinine 1.0 Creat Clearance w eGFR 77.87 Random Glucose 96 Calcium 8.6 Phosphorus 3.4 Magnesium 2.4 Iron TIBC Iron Saturation C-Reactive Protein Active Medications Generic Name Dose Route Start Last Admin Trade Name Freq PRN Reason Stop Dose Admin Aspirin 81 mg 08/06/18 10:00 08/07/18 10:32 Ecotrin - PO 81 mg DAILY BEREKET Administration Lisinopril 10 mg 08/06/18 10:00 08/07/18 10:32 Prinivil PO 10 mg DAILY BEREKET Administration Pramipexole Dihydrochloride 0.25 mg 08/06/18 22:00 08/07/18 10:32 Mirapex - PO 0.25 mg BID BEREKET Administration ASSESSMENT/PLAN: Parasthesias Atypical CP HTN --DDx of complex migraine vs. Lyme vs. cervical spinal involvement --Official report showing C6-C7 midline herniation indenting slightly on ventral R aspect of spinal cord --Neurosurgery consulted: possible benefit of surgical intervention --Lyme serology pending to f/u --Continue Pramipexole as possible component of RLS --Neurology on board; appreciated recommendations --Continue home dose Lisinopril 10mg qDaily --Will contact cardiology for possible recommendations regarding possible SVT --If not artifact can start beta-blockers and obtain echo FEN: Fluids: None Electrolyte abnormalities: None Nutrition: Regular PPX: DVT - early ambulation Dispo: Neurosurgery eval; continue monitoring Case discussed with Dr. Marybeth Albright, DO - IM PGY-2 Visit type - Emergency Visit Emergency Visit: Yes ED Registration Date: 08/05/18 Care time: The patient presented to the Emergency Department on the above date and was hospitalized for further evaluation of their emergent condition. - New Patient This patient is new to me today: No - Critical Care Critical Care patient: No
--- NOTE | 2018-08-07 13:39 | CON.CARD ---
Consult Consult Specialty:: cardiology Reason for Consultation:: arrhythmia; LE weakness - History of Present Illness History of Present Illness: Patient is a 53 year old man with PMH of HTN and HLD who presents for evaluation of 5 days of intermittent numbness/tingling. Patient states that his symptoms started on Thursday with RLE numbness over his calf that started while at rest and resolved after an hour. He reports taking ASA that evening. Since that time he has noted intermittent RLE, LUE, and RUE numbness that is independent, intermittent, and without identifiable trigger that resolves spontaneously usually after 10-20 minutes. He also reports 1 year of L sided, sharp, brief chest pain that is intermittent, spontaneous and most recently occurred last night when he laughed. Had some tongue numbness, brief bout of dizziness and "weirdness in his vision". Currently, the patient denies any symptoms. Denies fevers, chills, headache, vision changes, SOB, abdominal pain, nausea, vomiting, diarrhea, constipation, dysuria, hematuria, or blood in his stool. Patient notes being evaluated on Thursday by his PMD who he reports told him that 'everything was fine.' Also about 1 year ago (08/09/17), he was evaluated in [facility] ER for transient left arm tightness and right arm numbness. - History Source History Provided By: Patient, Medical Record Limitations to Obtaining History: No Limitations - Alcohol/Substance Use Hx Alcohol Use: Yes (3-5 beers on wknd) - Smoking History Smoking history: Never smoked Have you smoked in the past 12 months: No Home Medications - Allergies Allergies/Adverse Reactions: Allergies Allergy/AdvReac Type Severity Reaction Status Date / Time No Known Allergies Allergy Verified 08/09/17 17:22 - Home Medications Home Medications: Ambulatory Orders Lisinopril [Prinivil] 10 mg PO DAILY 08/09/17 Pramipexole Dihydrochloride [Mirapex -] 0.25 mg PO BID #60 tablet 08/07/18 Vital Signs: Vital Signs Temperature 98.4 F 08/07/18 10:00 Pulse Rate 73 08/07/18 10:00 Respiratory Rate 18 08/07/18 10:00 Blood Pressure 135/85 08/07/18 10:00 O2 Sat by Pulse Oximetry (%) 100 08/07/18 06:00 - Other Data Labs, Other Data: CBC, BMP 08/07/18 06:00 08/07/18 06:00 INR, PTT INR 1.06 (0.83-1.09) 08/06/18 07:00 Problem List - Problems (1) Atypical chest pain Assessment/Plan: TNI < 0.02 x x; CRP < 0.03. CXR: no acute pathology. EKD: NOSr; mild right axis deviation; no ST-T changes. Pt says he had an extensive cardiac workup 08/2017 for similar chest discomfort (tingling across the chest that accompanied the extremity weakness), including a CTA or coronary angiogram at [facility], and was told everythijng was "normal". Will retrieve those records. From a cardiac standpoint, pt may be followed up as an outpatient. F/u lipid profile; f/u BP. Code(s): R07.89 - OTHER CHEST PAIN (2) Numbness and tingling Code(s): R20.0 - ANESTHESIA OF SKIN; R20.2 - PARESTHESIA OF SKIN (3) Hypertension Code(s): I10 - ESSENTIAL (PRIMARY) HYPERTENSION Qualifiers: Hypertension type: unspecified Qualified Code(s): I10 - Essential (primary ) hypertension (4) Depression (emotion) Assessment/Plan: Pt underwent a divorce a few years ago. He continues to work full-time, and is not "stopped" by depression, but does feely lonely and sad at times. Code(s): F32.9 - MAJOR DEPRESSIVE DISORDER, SINGLE EPISODE, UNSPECIFIED
[2018-08-07 15:18] LABS: CHOLESTEROL 172 mg/dL (50-200); HDL CHOLESTEROL 35 mg/dL (40-60); TRIGLYCERIDES 181 mg/dL (0-150)
--- NOTE | 2018-08-07 21:17 | DS ---
Physical Exam: SUBJECTIVE: Pt started on pramipexole last night. Pt has no complaints today. Pt on telemetry has artifact VTach episode and with possible SVT during the morning while going to the bathroom today. Pt denies any palpitations or shortness of breath during episode. OBJECTIVE: Vital Signs Period Temp Pulse Resp BP Sys/Alejandra Pulse Ox Last 24 Hr 97.7 F-98.4 F 60-76 18-20 104-135/64-85 98-100 PHYSICAL EXAM GENERAL: The patient is awake, alert, and fully oriented, in no acute distress. HEENT: NC/AT, MALCOLM, EOMI, MMM NECK: No JVD LUNGS: CTA bilaterally, no wheezes, no crackles, no accessory muscle use. HEART: RRR, S1, S2 without murmur ABDOMEN: Soft, NT/ND, normoactive bowel sounds, no guarding, no rebound, no hepatomegaly EXTREMITIES: 2+ DP pulses, warm, well-perfused, no edema. 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 Normal speech, normal gait. Strength 5/5 in upper and lower extremity lugo, sensation intact throughout, DTR 2/4 in patellar PSYCH: Normal mood, normal affect. SKIN: Warm, dry, no rashes or lesions noted LABS Laboratory Results - last 24 hr 08/06/18 08/06/18 08/07/18 07:00 11:59 06:00 WBC RBC Hgb Hct MCV MCH MCHC RDW Plt Count MPV ESR 3 Sodium Potassium Chloride Carbon Dioxide Anion Gap BUN Creatinine Creat Clearance w eGFR Random Glucose Calcium Phosphorus Magnesium Iron 73 TIBC 311 Iron Saturation 23 Triglycerides Cholesterol Total LDL Cholesterol HDL Cholesterol Lyme Screen IgG & IgM <0.91 08/07/18 08/07/18 06:00 06:00 WBC 7.9 RBC 5.23 Hgb 15.1 Hct 44.4 MCV 84.9 MCH 29.0 MCHC 34.1 RDW 13.1 Plt Count 174 MPV 8.7 ESR Sodium 139 Potassium 4.0 Chloride 104 Carbon Dioxide 28 Anion Gap 6 L BUN 15 Creatinine 1.0 Creat Clearance w eGFR 77.87 Random Glucose 96 Calcium 8.6 Phosphorus 3.4 Magnesium 2.4 Iron TIBC Iron Saturation Triglycerides 181 H Cholesterol 172 Total LDL Cholesterol 110 H HDL Cholesterol 35 L Lyme Screen IgG & IgM HOSPITAL COURSE: Date of Admission:08/07/18 Date of Discharge: 08/07/18 Pt admitted on 08/07/18 due to transient parasthesias. Pt was seen by neurology who starte dhim on Pramipexol 0.25mg BID for likely RLS. A Head CT was performed in the ER which did not reveal any acute pathology. Pt then received an MRI of his head and C-spine which showed a slight indentation onto the spinal cord of his C6-C7 CAR MECHANIC. Pt was evaluated by neurosurgery who opted for conservative management with 8 weeks worth of intermittent NSAID PRN use and use of a soft collar with strenuous activity. Unfortunately during his hospital stay pt's telemetry showed a questionable arrhythmia (possible SVT), however upon evaluation by cardiology it was deemed that in the absence of symptoms this was merely artifact. Pt was continued on his Lisinopril 10mg qDaily medication with optimal BP measurements throughout hsi stay. Pt is being discharged home in stable condition without any symptoms with instructions to continue Pramipexole 0.25mg BID with follow-up to neurology within 2 weeks. Pt was also instructed to use his soft neck collar during strenuous activity and to use PRN NSAIDs for his neck. Pt is to f/u with Dr. Schrader in 8 weeks for interim f/u of his herniated CAR MECHANIC. Pt is to continue his Lisinopril 10mg qDaily IMAGING: MRI Brain: No evidence of enhancing demyelinating plaques. No evidence of dyemlinating plaques, hemorrhage or acute infarction. MRI C-spine: 08/07/18 --> moderate cervical arthrosis with a small C6-C7 midline herniation indenting slightly on the ventral aspect of the cord. No suspicious enhancing active demyelinating plaques. No suspicious signal intensity changes within the cervical cord. No significant cord compression Minutes to complete discharge: 35 Discharge Summary Reason For Visit: NUMBNESS AND TINGLING SENSATION OF SKIN/ACUTE Current Active Problems Depression (emotion) (Acute) Numbness and tingling (Acute) Hypertension (Chronic) Condition: Improved - Instructions Diet, Activity, Other Instructions: You were seen here for you travelling tingling and head pain by the medicine team and a neurology team. These symptoms were happening likely due to a migraine headache and a component of restless leg syndrome. You were started on Pramipexole (a medicine for restless leg syndrome) and an MRI was done which showed a herniated disc in your neck. You were evaluated by the spine doctor who said you can wear a soft collar during exercise or lifting heavy things and use advil or tylenol to help. You were evaluated by a heart doctor who reported that everything is okay. MEDICATIONS: Please continue taking Pramipexole 0.25mg TWICE DAILY Please continue taking your Lisinopril 10mg DAILY --These medications were sent to your pharmacy STOP taking aspirin as you do not need to take this medication and it can irritate your stomach lining FOLLOWUP: Please follow-up with your primary care provider to discuss the medications you were placed on. Please follow-up with Dr. Cavazos (neurology) if symptoms persist. His information was placed in this discharge paperwork. Please follow-up with Dr. Schrader (spine doctor) in 8 weeks to assess how the herniated disk is healing. Referrals: David Schrader MD, [facility] [Staff Physician] - Vitor Cavazos MD [Staff Physician] - Lucie Cobos MD [Primary Care Provider] - Disposition: HOME - Home Medications Comprehensive Discharge Medication List: Ambulatory Orders Lisinopril [Prinivil] 10 mg PO DAILY 08/09/17 Pramipexole Dihydrochloride [Mirapex -] 0.25 mg PO BID #60 tablet 08/07/18 This patient is new to me today: No Emergency Visit: No Critical Care patient: No - Discharge Referral Referred to [facility] No
[2018-08-07 22:25] VITALS: BP 118/75; PULSE 66; TEMP 97.6
[2018-08-08] MEDS ORDERED: metoPROLOL SUCCINATE 25 MG TAB.SR.24H (FP) PO SCH (10:00)
--- NOTE | 2018-08-08 17:59 | EKG ---
Test Reason : Blood Pressure : / mmHG Vent. Rate : 065 BPM Atrial Rate : 065 BPM P-R Int : 168 ms QRS Dur : 116 ms QT Int : 394 ms P-R-T Axes : 046 144 058 degrees QTc Int : 409 ms NORMAL SINUS RHYTHM RIGHT AXIS DEVIATION ABNORMAL ECG WHEN COMPARED WITH ECG OF 05-AUG-2018 16:46, Confirmed by DULCE CHANDRA MD ([id number]) on 08/08/2018 5:58:51 PM Referred By: Juan C YAN Confirmed By:DULCE CHANDRA MD
--- NOTE | 2018-08-09 09:25 | CONSULT ---
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 He has a history of Right sided numbness which started on August 01, 2018 without associated antecedent accident or injury. He describes having multiple, intermittent episodes lasting about 10 minutes of numbness over his Right arm, trunk and leg. He also has had tongue numbness which was not associated with dysarthria. One year ago, he developed Left then Right sided chest pain which was similarly episodic. Per patient, evaluation did not identify a Cardiac etiology. On Physical exam, the patient has a positive Spurling's sign on the Right and numbness and tingling in his hands. He denies dropping things or loss of fine motor skills. He has a vague sense of imbalance as well. MRI Brain was unremarkable. 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 Although the patient may ultimately benefit from decompression and stabilization , the mild nature of his current symptoms and the short duration suggest that conservative management be started first. I described warning signs which would prompt return for further evaluation and all questions were answered. - soft cervical collar - RT ER for progression of symptoms - Will consider Physical Therapy and Pain Management as needed
== END 2018-08-07 21:50 | disposition home or self-care (01) | DRG 58 ==
LOC: JER 16:40 → JERBED 18:36 → J4S 23:10 → OBSVTOIN 08-07 13:17
PROVIDERS: ADMIT Internal Medicine; ATTEND Internal Medicine
DX: G25.81 Restless legs syndrome (principal); M50.20 Other cervical disc displacement, unspecified cervical region; I10 Essential (primary) hypertension; F32.9 Major depressive disorder, single episode, unspecified; E78.5 Hyperlipidemia, unspecified; R07.89 Other chest pain; G43.909 Migraine, unspecified, not intractable, without status migrainosus
CPT/HCPCS: 36415; 70450-TC; 70553-TC; 71045-TC-FY; 72156-TC; 80048; 80053; 80061; 83540; 83550; 83721; 83735; 84100; 84443; 84484; 85025; 85027; 85610; 85651; 86140; 86593; 86618; 93005; 93010; 99285-25; G0378

== ENCOUNTER 2023-06-13 01:07 | Emergency (ER) | payer BC, OTHER ==
[2023-06-13 01:16] VITALS: BP 156/90; PULSE 71; RESP 18; TEMP 97.8; BMI 25.9
== END 2023-06-13 01:38 | disposition left against medical advice (07) ==
LOC: JER 01:07
DX: R07.9 Chest pain, unspecified (principal)
CPT/HCPCS: 99281-25